=== PATIENT | female | born 1995 ===

== ENCOUNTER 2020-09-08 13:30 | Inpatient (IN) | payer OTHER ==
[~2020-09-08] VITALS: Ht 157.5 cm; Wt 4.1 kg
[2020-09-08] MEDS ORDERED: OBTREX DHA COM1 EACH PO (15:14)
== END 2020-09-19 12:14 | disposition home or self-care (01) | DRG 788 ==
LOC: OB/GYN 09-17 09:38 → O/R 09-17 09:38 → OB/GYN 09-17 11:15
PROVIDERS: ADMIT Obstetrics & Gynecology Maternal & Fetal Medicine; ATTEND Obstetrics & Gynecology Maternal & Fetal Medicine
PROC: 4A1HXFZ Monitoring of Products of Conception, Cardiac Rhythm, External Approach (ICD-10-PCS; 2020-09-17)
PROC: 10D00Z1 Extraction of Products of Conception, Low, Open Approach (ICD-10-PCS; principal; 2020-09-17 11:15)
DX: O33.5XX0 Maternal care for disproportion due to unusually large fetus, not applicable or unspecified (principal); Z3A.39 39 weeks gestation of pregnancy; Z37.0 Single live birth; Z20.822 Contact with and (suspected) exposure to COVID-19